=== PATIENT | female | born 1990 | race Caucasian/White ===

== ENCOUNTER 2017-05-18 17:24 | Emergency (ER) | payer OTHER ==
[~2017-05-18] VITALS: Ht 165.1 cm; Wt 87.5 kg
[2017-05-18 17:38] VITALS: Ht 165.1 cm; Wt 87.5 kg
[2017-05-18 19:02] VITALS: BP 125/88
== END 2017-05-18 19:02 | disposition home or self-care (01) ==
LOC: ED 17:24
DX: S61.012A Laceration without foreign body of left thumb without damage to nail, initial encounter (principal); W54.0XXA Bitten by dog, initial encounter; Y93.89 Activity, other specified; Y99.8 Other external cause status; Y92.89 Other specified places as the place of occurrence of the external cause
CPT/HCPCS: 90715

== ENCOUNTER 2020-06-27 17:30 | Emergency (ER) | payer OTHER ==
[~2020-06-27] VITALS: Ht 165.1 cm; Wt 72.6 kg
[2020-06-27 17:31] VITALS: Ht 165.1 cm; Wt 72.6 kg
[2020-06-27 19:22] VITALS: BP 130/99
== END 2020-06-27 19:22 | disposition home or self-care (01) ==
LOC: ED 17:30
DX: G43.909 Migraine, unspecified, not intractable, without status migrainosus (principal); F41.9 Anxiety disorder, unspecified
CPT/HCPCS: J1885; J2550; Q0162